=== PATIENT | female | born 2000 | race Asian ===

== ENCOUNTER 2021-07-07 14:34 | Emergency (ER) | payer MEDICAID ==
[~2021-07-07] VITALS: Ht 160 cm; Wt 79.4 kg
[2021-07-07 14:54] VITALS: BP_SYST 132
--- NOTE | 2021-07-07 17:52 | NUR ---
Pt informed [facility]
== END 2021-07-07 17:52 | disposition left against medical advice (07) ==
LOC: SED 14:34
DX: K13.70 Unspecified lesions of oral mucosa (principal); Z53.21 Procedure and treatment not carried out due to patient leaving prior to being seen by health care provider